=== PATIENT | male | born 1980 | race African-American/Black ===

== ENCOUNTER 2021-01-12 15:45 | Emergency (ER) | payer SELFPAY ==
[~2021-01-12] VITALS: Ht 182.9 cm; Wt 134.0 kg
[2021-01-12] MEDS ORDERED: KETOROLAC 60MG/2ML VIAL IM ONE (17:30)
[2021-01-12 18:00] VITALS: BP 195/129
[2021-01-12] MEDS ORDERED: IBUP-2029 MT (18:41)
[2021-01-12] MEDS ORDERED: CYCL10TA7 MT (18:42)
== END 2021-01-12 18:57 | disposition home or self-care (01) ==
LOC: ER 15:45
DX: M54.5 Low back pain (principal); M25.512 Pain in left shoulder; I10 Essential (primary) hypertension; E11.9 Type 2 diabetes mellitus without complications
CPT/HCPCS: 72100; 73030; 96372; 99284; J1885